=== PATIENT | female | born 1960 | race Caucasian/White ===

== ENCOUNTER → 2019-07-04 | Day surgery (SDC) | payer OTHER ==
--- NOTE | 2019-07-05 14:32 | PATH ---
Surgical Pathology Report Patient Name: LOUIS HARRIS [facility]. Rec. #: [id number] /Age/Gender: 1960 (Age: 59) / F Account: [id number] Location: [facility] Taken: 07/04/2019 Received: 07/04/2019 Reported: 07/05/2019 Physicians: Kay Bella M.D. Shikha Llamas M.D. Specimen(s) Received A: RIGHT BREAST 10:00 (2.3 CM) CORE BIOPSY B: RIGHT AXILLA LYMPH NODE CORE BIOPSY Clinical History Nonpalpable lesion Mammographic /ultrasound findings: Suspicious Final Diagnosis A. breast, right, 10:00, 5 cm fn, core biopsy: Invasive ductal carcinoma, moderately differentiated with apocrine features and few associated calcifications, measuring 8 mm in greatest dimension In this material. Focal ductal carcinoma in situ (DCIS), Solid type, intermediate nuclear grade WITH APOCRINE FEATURES, focal necrosis and few associated calcifications. B. lymph node, right axilla, core biopsy: Invasive ductal carcinoma, moderately differentiated, compatible with metastasis from CONCURRENT ipsilateral breast primary. (See note). Note: No definitive lymph node tissue is identified. This may represent carcinoma extensively involving/replacing the lymph node. Case discussed with Dr. Kay Bella on 07/05/19. Results of ER and AR studies performed on block A at are as follows: ER (clone [id number] mouse monoclonal antibody by [employer]) : >95 % nuclear staining with strong intensity (positive). AR (clone16 mouse monoclonal antibody by [employer]): <1% nuclear staining (negative). Results of Her2 & Ki67 studies will be reported separately in an addendum. Positive and negative controls (internal if applicable) show appropriate results. Formalin fixation and cold ischemic times are within current ASCO/CAP recommendations for ER, AR and Her2 testing. Electronically Signed Viridiana Morris M.D. Addendum Reported: 07/08/2019 Addendum Diagnosis Results of Her2 (IHC) & Ki-67 studies performed on block A at [place], [place] ([id number]) are as follows: Her2 IHC (EP3 from [employer], formerly known as [id number], using Minor Polymer Refine detection kit): 1+ (negative). Ki-67: ~20% (intermediate proliferative index). Positive and negative controls (internal if applicable) show appropriate results. Viridiana Morris M.D. Gross Description A. Received in formalin labeled "right breast 10:00, 5cmfn," are 3 rivera-yellow, cylindrical portions of fibroadipose tissue ranging from 0.3-1.7 cm in length and averaging 0.1 cm in diameter. The specimens are submitted in toto in one cassette. B. Received in formalin labeled "right breast axilla," are 3 rivera-yellow, cylindrical portions of fibroadipose tissue ranging from 0.3-0.8 cm in length and averaging 0.1 cm in diameter. The specimens are submitted in toto in one cassette. Time to formalin fixation: < 1 one minute Total formalin fixation time: Approximately 8 hours. 07/04/2019 [facility]07/04/2019
== END | disposition home or self-care (01) ==
LOC: JRADUS 08:42 → JRADUS-SUR 08:42
PROVIDERS: ATTEND Obstetrics & Gynecology
PROC: 0HBT3ZX Excision of Right Breast, Percutaneous Approach, Diagnostic (ICD-10-PCS; principal; 2019-07-04)
PROC: 07B53ZX Excision of Right Axillary Lymphatic, Percutaneous Approach, Diagnostic (ICD-10-PCS; 2019-07-04)
DX: C50.911 Malignant neoplasm of unspecified site of right female breast (principal); C77.3 Secondary and unspecified malignant neoplasm of axilla and upper limb lymph nodes
CPT/HCPCS: 19083; 19084; 87899; 88305-TC; 88342-TC; A4648

== ENCOUNTER 2020-07-13 04:46 | Day surgery (SDC) | payer OTHER ==
[2020-07-09 18:03] VITALS: BMI 15.0
--- NOTE | 2020-07-13 07:57 | HP ---
History & Physical Update - History History: No Change - Physical Physical: No Change - Assessment Assessment: No Change - Plan Plan: No Change (No change in HP)
[2020-07-13] MEDS ORDERED: PROPOFOL 20 ML ONE (12:12)
[2020-07-13] MEDS ORDERED: MIDAZOLAM HCL 2 MG/2 ML SINGLE DOSE VIAL ONE ×2 (12:12→12:28)
[2020-07-13] MEDS ORDERED: ACETAMINOPHEN 325 MG TABLET (FP) PO PRN (12:28)
[2020-07-13] MEDS ORDERED: IBUPROFEN 400 MG TABLET (FP) PO PRN (12:28)
--- NOTE | 2020-07-13 12:29 | HP ---
History & Physical Update - History History: No Change - Physical Physical: No Change - Assessment Assessment: No Change - Plan Plan: No Change (No change in HP)
[2020-07-13] MEDS ORDERED: LIDOCAINE HCL/PF 2% SDV 5ML VIAL ONE (12:32)
[2020-07-13] MEDS ORDERED: DEXAMETHASONE SOD PHOSPHATE 4 MG/1 ML VIAL ONE (12:39)
[2020-07-13] MEDS ORDERED: KETOROLAC TROMETHAMINE 30 MG/1 ML VIAL ONE (12:55)
[2020-07-13] MEDS ORDERED: oxyCODONE HCL 5 MG TABLET PO PRN (13:19)
[2020-07-13] MEDS ORDERED: ONDANSETRON 4 MG/2 ML VIAL IVPUSH PRN (13:19)
[2020-07-13] MEDS ORDERED: LACTATED RINGERS SOLUTION 1,000 ML IV SCH (13:30)
--- NOTE | 2020-07-13 13:46 | OP ---
Operative Note - Note: Operative Date: 07/13/20 Pre-Operative Diagnosis: Submucosal myoma Operation: Hysteroscopic myomectomy. Suction DC Findings: submucosal myoma Post-Operative Diagnosis: Same as Pre-op Surgeon: Shikha Llamas Anesthesia: General Estimated Blood Loss (mls): 5 Operative Report Dictated: Yes
[2020-07-13 16:35] VITALS: BP 127/80; PULSE 64; TEMP 97.3
--- NOTE | 2020-07-13 23:22 | OP ---
DATE OF OPERATION: 07/13/2020 PREOPERATIVE DIAGNOSIS: Submucosal myoma. OPERATION: Hysteroscopic myomectomy, suction dilation and curettage. POSTOPERATIVE DIAGNOSIS: Submucosal myoma. Calcified myomas seen. PROCEDURE: Patient was taken to the operating room, placed in dorsal lithotomy position. Prepped and draped in the usual sterile fashion. Timeout was performed in accordance with hospital regulation. Speculum is placed in the vagina. Anterior lip of the cervix was grasped with single-toothed tenaculum. Cervix then dilated to accommodate the operative hysteroscope. Visualization revealed large amount of pedunculated submucosal myoma. Cautery and cutting of the myoma was done. This procedure was completed followed by dilation and curettage, and then this procedure was repeated 3 times. All contents were removed. Endometrial cavity was normal. Patient tolerated procedure well, was taken to recovery in stable condition. ESTIMATED BLOOD LOSS: 5 mL. ROBERT BLUM M.D. [id number]
--- NOTE | 2020-07-15 14:25 | PATH ---
Surgical Pathology Report Patient Name: LOUIS HARRIS [facility]. Rec. #: [id number] /Age/Gender: 1960 (Age: 60) / F Account: [id number] Location: [facility] Taken: 07/13/2020 Received: 07/14/2020 Reported: 07/15/2020 Physicians: Shikha Llamas M.D. Specimen(s) Received FIBROIDS /UTERINE CONTENTS Clinical History Fibroids Final Diagnosis "FIBROIDS"/CONTENTS OF UTERUS, HYSTEROSCOPIC MYOMECTOMY: ENDOMETRIAL POLYP, FRAGMENTS. Electronically Signed Bindu Calderon M.D. Gross Description Received in formalin labeled "fibroids/contents of uterus," is a 1 g, 2.0 x 1.3 x 0.3 cm aggregate of rivera-pink, firm to rubbery tissue fragments. The formalin is filtered and the specimen is entirely submitted in one cassette. /07/14/2020 [place]/07/14/2020
== END 2020-07-13 17:05 | disposition home or self-care (01) ==
LOC: JASU-SURG 04:46
PROVIDERS: ATTEND Obstetrics & Gynecology
PROC: 0UB98ZZ Excision of Uterus, Via Natural or Artificial Opening Endoscopic (ICD-10-PCS; principal; 2020-07-13 10:30)
PROC: 0UDB8ZX Extraction of Endometrium, Via Natural or Artificial Opening Endoscopic, Diagnostic (ICD-10-PCS; 2020-07-13 10:30)
DX: D25.0 Submucous leiomyoma of uterus (principal)
CPT/HCPCS: 36415; 84703; 86850; 86900; 86901; 88305-TC; 94760